=== PATIENT | male | born 1995 | race Caucasian/White ===

== ENCOUNTER → 2017-05-20 | Outpatient (CLI) | payer OTHER ==
--- NOTE | 2017-05-20 07:46 | DIAGNOSTIC IMAGING REPORT ---
CT OF THE ABDOMEN AND PELVIS WITHOUT CONTRAST CLINICAL HISTORY: Right lower quadrant abdominal pain. COMPARISON STUDY: No previous studies for comparison. TECHNIQUE: Axial images of the abdomen and pelvis were obtained without IV contrast. Images were reviewed in the axial, sagittal, and coronal planes. A dose lowering technique was utilized adhering to the principles of ALARA. FINDINGS: Lung bases are clear. Unenhanced images of liver, spleen, adrenal glands and pancreas are unremarkable. No renal, ureteral or bladder calculi are present. There is no hydronephrosis or hydroureter. Caliber of small and large bowel are normal. The appendix is normal. There is no ascites or lymphadenopathy. There are no suspicious osseous lesions. No pneumatosis, free air or portal venous gas is present. There is no peripancreatic or pericholecystic infiltration. IMPRESSION: 1. No urinary calculi or hydronephrosis. 2. No acute process within the abdomen or pelvis on unenhanced exam. Normal appendix. No bowel obstruction. Electronically signed by: Sameer Morales M.D. 05/20/2017 7:44 AM Dictated Date/Time: 05/20/2017 7:34 AM
== END | disposition home or self-care (01) ==
LOC: C.CTS 07:13
PROVIDERS: ATTEND Family Medicine
DX: R10.31 Right lower quadrant pain (principal)